=== PATIENT | female | born 2000 | race Caucasian/White ===

== ENCOUNTER 2020-06-25 07:21 | Emergency (ER) | payer OTHER ==
[~2020-06-25] VITALS: Ht 165.1 cm; Wt 54.4 kg
[2020-06-25] MEDS ORDERED: LEVO-96 PO (07:26)
[2020-06-25] MEDS ORDERED: NS 1,000 ML IV ONE (08:15)
[2020-06-25] MEDS ORDERED: METOCLOPRAMIDE INJ 10MG/2ML VIAL (J2765 PER 1) IV ONE (08:15)
[2020-06-25 08:17] LABS: BASO % 0.3 % (0.0-1.0); EOS % 0.2 % (0.0-3.0); HEMATOCRIT 40.9 % (36.0-47.0); HEMOGLOBIN 14.2 g/dl (12.0-15.5); MEAN CORPUSCULAR HEMOGLOBIN 29.9 pg (27.0-33.0); MEAN CORPUSCULAR HGB CONC 34.7 g/dl (32.0-36.5); MEAN CORPUSCULAR VOLUME 86.1 fl (80.0-96.0); MONO # 0.3 10^3/uL (0.0-0.8); MONO % 3.8 % (0.0-5.0); NEUTROPHILS # 7.2 10^3/uL (1.5-8.5); NEUTROPHILS % 83.2 % (36.0-66.0); PLATELET COUNT, AUTOMATED 250 10^3/uL (150-450); RED BLOOD COUNT 4.75 10^6/uL (4.00-5.40); WHITE BLOOD COUNT 8.7 10^3/uL (4.0-10.0)
[2020-06-25 09:07] LABS: ALBUMIN 3.8 GM/DL (3.2-5.2); ALT/SGPT 15 U/L (12-78); BILIRUBIN,DIRECT 0.2 MG/DL (0.0-0.2); BILIRUBIN,TOTAL 0.6 MG/DL (0.2-1.0); BLOOD UREA NITROGEN 8 MG/DL (7-18); CALCIUM LEVEL 8.9 MG/DL (8.5-10.1); CARBON DIOXIDE LEVEL 21 MEQ/L (21-32); CHLORIDE LEVEL 110 MEQ/L (98-107); CREATININE FOR GFR 0.73 MG/DL (0.55-1.30); GLOMERULAR FILTRATION RATE > 60.0 (>60); GLUCOSE, FASTING 103 MG/DL (70-100); HCG, SERUM QUANTITATIVE 44980 MIU/ML; LIPASE 41 U/L (73-393); POTASSIUM SERUM 3.5 MEQ/L (3.5-5.1); SODIUM LEVEL 134 MEQ/L (136-145); TOTAL PROTEIN 6.8 GM/DL (6.4-8.2)
[2020-06-25 09:38] VITALS: BP 115/65
[2020-06-26] MEDS ORDERED: PYRI25TA2 PO (17:14)
[2020-06-26] MEDS ORDERED: UNIS25TA3 PO (17:14)
== END 2020-06-25 09:39 | disposition home or self-care (01) ==
LOC: M ED 07:21
DX: O21.9 Vomiting of pregnancy, unspecified (principal); O99.281 Endocrine, nutritional and metabolic diseases complicating pregnancy, first trimester; Z3A.01 Less than 8 weeks gestation of pregnancy; Z79.899 Other long term (current) drug therapy
CPT/HCPCS: 36415; 80048; 80076; 83690; 84702; 85025; 96361; 96374; 99284; J2765

== ENCOUNTER 2020-06-26 15:49 | Emergency (ER) | payer OTHER ==
[~2020-06-26] VITALS: Ht 165.1 cm; Wt 54.2 kg
[~2020-06-26 15:49] MED LIST: LEVO-96 PO
[2020-06-26] MEDS ORDERED: ONDANSETRON 4 MG ORAL DISINTEGRATING TAB PO ONE (16:30)
[2020-06-26] MEDS ORDERED: PYRI25TA2 PO (17:14)
[2020-06-26] MEDS ORDERED: UNIS25TA3 PO (17:14)
[2020-06-26 17:26] VITALS: BP 122/56
== END 2020-06-26 17:27 | disposition home or self-care (01) ==
LOC: M ED 15:49
DX: O21.9 Vomiting of pregnancy, unspecified (principal); Z3A.01 Less than 8 weeks gestation of pregnancy
CPT/HCPCS: 99283; Q0162

== ENCOUNTER 2021-01-01 11:15 | Outpatient (CLI) | payer OTHER ==
[~2021-01-01 11:15] MED LIST changes: +PYRI25TA2 PO; +UNIS25TA3 PO
[2021-01-02 06:19] LABS: CHLAMYDIA DNA AMPLIFICATION NEGATIVE (NEGATIVE); GC DNA AMPLIFICATION NEGATIVE (NEGATIVE)
[2021-01-02 08:03] LABS: APPEARANCE, URINE CLEAR (CLEAR); BACTERIA, URINE AUTO NEGATIVE (NEGATIVE); BILIRUBIN, URINE AUTO NEGATIVE (NEGATIVE); BLOOD, URINE BLOOD NEGATIVE (NEGATIVE); COLOR, URINE YELLOW (YELLOW); GLUCOSE, URINE (UA) AUTO NEGATIVE (NEGATIVE); KETONE, URINE AUTO TRACE mg/dL (NEGATIVE); LEUKOCYTE ESTERASE, URINE AUTO NEGATIVE (NEGATIVE); NITRITE, URINE AUTO NEGATIVE (NEGATIVE); PROTEIN, URINE AUTO NEGATIVE (NEGATIVE); RBC, URINE AUTO 0 /HPF (0-3); SPECIFIC GRAVITY URINE AUTO 1.009 (1.002-1.035); SQUAMOUS EPITHELIAL CELL UR AU 2 /HPF (0-6); UROBILINOGEN, URINE AUTO 0.2 mg/dL (0.0-2.0); WBC, URINE AUTO 0 /HPF (0-3)
== END 2021-01-01 12:50 | disposition home or self-care (01) ==
LOC: M LDO 11:15 → MERGE 11:15 → M LDO 12:50
PROVIDERS: ATTEND Registered Nurse
DX: O47.9 False labor, unspecified (principal); Z3A.00 Weeks of gestation of pregnancy not specified
CPT/HCPCS: 59025; 81001; 87081; 87086; 87491; 87591; G0378; G0463

== ENCOUNTER 2021-01-28 09:01 | Outpatient (CLI) | payer OTHER ==
[2021-01-28 09:10] VITALS: BP 120/79
== END 2021-01-28 09:50 | disposition home or self-care (01) ==
LOC: M LDO 09:01
PROVIDERS: ATTEND Obstetrics & Gynecology
DX: O36.8330 Maternal care for abnormalities of the fetal heart rate or rhythm, third trimester, not applicable or unspecified (principal); Z3A.37 37 weeks gestation of pregnancy

== ENCOUNTER 2021-02-06 07:34 | Inpatient (IN) | payer OTHER ==
[~2021-02-06] VITALS: Ht 165.1 cm; Wt 76.4 kg
[2021-02-06] VITALS (16 sets, daily range): BP systolic 121–154; BP diastolic 68–85
[2021-02-06] MEDS ORDERED: PRENTAB9 PO (07:55)
--- NOTE | 2021-02-06 09:52 | HPEPDOC ---
Obstetrical History & Physical General Date of Admission Feb 06, 2021 at 07:34 History of Present Illness 20yo at 39+0wks presenting for IOL for uncontrolled hypothyroidism. She has had difficulty achieving adequate control of her TFTs since becoming . Denies VB, LOF, DFM, or ctx's. 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 Past Medical History Medical History Hypothyroidism Surgical History: [place] teeth Family History Significant Family History: Hypertension Social History Marital Status: Family situation: Spouse/partner home Psychosocial History: Timo SI and HI, Depression * Smoker: non-smoker Alcohol: Denies Drugs: denies Imunizations Tdap status: current (12/06/2020) Influenza Status: declined Allergies Coded Allergies: No Known Allergies (Unverified , 06/26/20) Medications Scheduled Levothyroxine Sodium (Levo-T) 175 Mcg Tablet, 175 MCG PO DAILY for hypothyroid No.137/Iron/Folic Acd ( Vitamin Tablet) 1 Each Tablet, 1 TAB PO DAILY Physical Examination Physical Examination GENERAL: Alert and oriented times three. ABDOMEN: Gravid and non-tender to touch. FETUS: Is vertex (VTX) by sterile vaginal examination (SVE), fetus is vertex (VTX) by Isaak. CARDS: well-perfused RESP: no exaggerated respiratory effort EXTREMITIES: No edema. : NEFG, SVE closed/thick/high Laboratory Data 24H LABS Laboratory Tests 2 02/06/21 07:41: Serology Scanned Report Hepatitis B Testing Urine Culture: No Growth Pertinent Laboratoy Data Blood Type: O- RBC Antibody Screen: Negative HIV: Negative Hepatitis B: Negative Rapid Plasma Reagin: Nonreactive Rubella: Immune Varicella: Immune Chlamydia/Gonorrhea: Negative Group B Streptococcus: Negative Quad Screen Test: Negative Cystic Fibrosis: Negative Glucose Tolerance Test: 108 Anatomy Ultrasound Placenta Location: Posterior Normal Anatomy: Yes Placenta Previa: No Vaginal Examination Dilation: None Effacement: 30% Station: -3 Cervical Consistency: Medium Cervical Position: Posterior Presentation: Cephalic presentation Assessment Heart Rate (FHR): 145 Variability: Moderate Accelerations: Present Decelerations: None Tocometer Contractions: No Multi-drug resistant Organism: No history of MDRO Assessment/Plan Assessment 20yo at 39+0wks presenting for scheduled IOL for uncontrolled hypothyroidism in . Cervix closed/thick/high. GBS neg. EFW 3200g. Plan Admit and orient. Epic Radiant Analyst and consent. Diet: regular as tolerated in latent labor then clear in active labor Group B Streptococcus (GBS) negative. Labs and intravenous (IV) per unit protocol. Counseled on Pitocin and induction of labor (IOL). Plan to start IOL with cytotec at this time. Lactated Ringers (LR): heplock Anticipate normal spontaneous delivery (). C-S as appropriate. GREYSON PARISH DO Feb 06, 2021 09:52
[2021-02-06 10:46] LABS: HEMATOCRIT 35.1 % (36.0-47.0); HEMOGLOBIN 10.8 g/dl (12.0-15.5); MEAN CORPUSCULAR HEMOGLOBIN 26.7 pg (27.0-33.0); MEAN CORPUSCULAR HGB CONC 30.8 g/dl (32.0-36.5); MEAN CORPUSCULAR VOLUME 86.7 fl (80.0-96.0); PLATELET COUNT, AUTOMATED 324 10^3/uL (150-450); RED BLOOD COUNT 4.05 10^6/uL (4.00-5.40); WHITE BLOOD COUNT 10.7 10^3/uL (4.0-10.0)
[2021-02-06] MEDS ORDERED: FENTANYL 2MCG/ML ROPIVACAINE 0.2% IN 0.9% NACL 100ML IVBAG As Ordered ONE (22:44)
[2021-02-06] MEDS ORDERED: diphenhydrAMINE 50MG/ML VIAL (J1200) IV PRN (23:00)
[2021-02-06] MEDS ORDERED: ONDANSETRON 4MG/2ML VIAL IV PRN (23:00)
[2021-02-06] MEDS ORDERED: EPIDURAL COMMENT XX SCH (23:00)
[2021-02-06] MEDS ORDERED: REFRIGERATOR IV KEYS XX PRN (23:00)
[2021-02-06] MEDS ORDERED: LACTATED RINGER'S 1000 ML IV PRN (23:00)
[2021-02-06] MEDS ORDERED: EPIDURAL/PCA KEYS XX PRN (23:00)
[2021-02-06] MEDS ORDERED: NALOXONE INJ 0.4MG/1ML VIAL (J2310 PER 1MG) IV PRN (23:00)
[2021-02-06] MEDS ORDERED: ePHEDrine SULFATE 25 MG/5 ML(5MG/ML) SYRINGE IV PRN (23:00)
[2021-02-06] MEDS ORDERED: FENTANYL/ROPIVACAINE/NACL BAG 100 ML EPIDURAL SCH (23:00)
[2021-02-07] VITALS (19 sets, daily range): BP systolic 111–174; BP diastolic 66–98
--- NOTE | 2021-02-07 00:04 | IPNPDOC ---
Obstetrical Progress Note Date of Service Feb 06, 2021 Subjective 20yo at 39+0wks admitted for IOL for uncontrolled hypothyroidism. She reports gush of clear fluid at 1840. She reports having mild cramping pelvic pain until 1999 when ctx's developed and she reports they are quite painful. She endorses good FM. Denies VB. Objective Vital Signs Date Time Temp Pulse Resp B/P (MAP) Pulse Ox O2 Delivery O2 Flow Rate FiO2 02/06/21 19:46 98.3 02/06/21 19:46 64 16 02/06/21 18:25 151/77 (101) Assessment Heart Rate (FHR): 150 Variability: Moderate Accelerations: Positive Decelerations: None Heart Rate Tracing: Category I Tocometer Contractions: Yes Frequency: every 1-3 min. Sterile Vaginal Examination Dilation: 3 cm Effacement (%): 80% Station: 0 Cervical Consistency: Soft Cervical Position: Anterior Postion/Presentation: Cephalic presentation Assessment and Plan Status: Reassuring Group B Streptococcus: Negative Anticipate: Vaginal Delivery Additional Comments 20yo at 39+0wks admitted for IOL for uncontrolled hypothyroidism. Patient has received 2 doses of cytotec. SVE revealed significant cervical change from closed to 3/80/0. Patient requested epidural for pain mgmt, anesthesia consulted. Will discontinue cytotec at this time to allow for expectant mgmt. FHRT cat I with regular ctx's. Will allow for expectant mgmt at this time for anticipated . Patient desires to proceed, safe to continue. GREYSON PARISH DO Feb 07, 2021 00:04
--- NOTE | 2021-02-07 00:07 | IPNPDOC ---
Obstetrical Progress Note Date of Service Feb 07, 2021 Objective Vital Signs Date Time Temp Pulse Resp B/P (MAP) Pulse Ox O2 Delivery O2 Flow Rate FiO2 02/06/21 19:46 98.3 02/06/21 19:46 64 16 02/06/21 18:25 151/77 (101) Assessment Heart Rate (FHR): 145 Variability: Moderate Accelerations: Present Heart Rate Tracing: Category I Tocometer Contractions: Yes Frequency: regular, every 1-5 min. Sterile Vaginal Examination Dilation: 6 cm Effacement (%): 100% Station: 0 Cervical Consistency: Soft Cervical Position: Anterior Postion/Presentation: Cephalic presentation Assessment and Plan Status: Reassuring Group B Streptococcus: Negative Anticipate: Vaginal Delivery Additional Comments SVE by RN after epidural noted to be 6-7/100/0. FHRT cat I. Will allow patient to rest with effective epidural in place at this time. Anticipate . GREYSON PARISH DO Feb 07, 2021 00:07
[2021-02-07] MEDS ORDERED: OXYTOCIN 30 UNITS IN 0.9% NaCl 500ML IV BAG (J2590) As Ordered ONE (03:24)
--- NOTE | 2021-02-07 04:40 | DNPDOC ---
[facility] Delivery Note Delivery Note DATE OF DELIVERY: [id number] PREDELIVERY DIAGNOSIS: 39+1/7 weeks' gestation and labor. POST DELIVERY DIAGNOSIS: Delivered. PROCEDURE: Spontaneous vaginal delivery ANALOG CIRCUIT DESIGNER: Dr. Greyson Parish ANESTHESIA: Epidural. ESTIMATED BLOOD LOSS: 300 mL. FINDINGS: 8 pound 5 ounce 3780g male infant, Score 9/9, no nuchal cord, no meconium on delivery field but occurred on maternal abdomen. DELIVERY SUMMARY: Emalie progressed to c/c/+3 and began pushing. With excellent maternal effort, spontaneous vaginal delivery of a viable term male . Presentation was OA with restitution to ROT with left anterior shoulder. Anterior shoulder and body delivered without difficulty. No nuchal cord. Infant with spontaneous cry on delivery field therefore placed on maternal abdomen with care transferred to Team. Meconium noted after delivery of while on maternal abdomen. IV pitocin bolus initiated. Inspection revealed a 1st degree perineal laceration that was reapproximated with 2-0 vicryl in routine fashion with good approximation of tissue and hemostasis noted. After >10 minutes of delayed cord clamping, three vessel cord clamped x2 and cut by FOB. Cord blood sample obtained. Third stage spontaneous with intact placenta. Fundal massage revealed firm uterine tone and hemostasis. EBL 300ml. Mother and infant stable and bonding upon my leaving the room. Gerard, OB Staff GREYSON PARISH DO Feb 07, 2021 04:30
[2021-02-07 19:09] LABS: HEMATOCRIT 31.4 % (36.0-47.0); HEMOGLOBIN 9.8 g/dl (12.0-15.5); MEAN CORPUSCULAR HEMOGLOBIN 26.4 pg (27.0-33.0); MEAN CORPUSCULAR HGB CONC 31.2 g/dl (32.0-36.5); MEAN CORPUSCULAR VOLUME 84.6 fl (80.0-96.0); PLATELET COUNT, AUTOMATED 312 10^3/uL (150-450); RED BLOOD COUNT 3.71 10^6/uL (4.00-5.40); WHITE BLOOD COUNT 18.1 10^3/uL (4.0-10.0)
[2021-02-07 19:35] LABS: ALBUMIN 2.5 GM/DL (3.2-5.2); ALT/SGPT 12 U/L (12-78); BILIRUBIN,TOTAL 0.3 MG/DL (0.2-1.0); BLOOD UREA NITROGEN 9 MG/DL (7-18); CALCIUM LEVEL 8.8 MG/DL (8.5-10.1); CARBON DIOXIDE LEVEL 25 MEQ/L (21-32); CHLORIDE LEVEL 107 MEQ/L (98-107); CREATININE FOR GFR 0.49 MG/DL (0.55-1.30); GLOMERULAR FILTRATION RATE > 60.0 (>60); GLUCOSE, FASTING 98 MG/DL (70-100); POTASSIUM SERUM 3.8 MEQ/L (3.5-5.1); SODIUM LEVEL 140 MEQ/L (136-145); TOTAL PROTEIN 5.9 GM/DL (6.4-8.2)
[2021-02-08 05:42] VITALS: BP 112/78
--- NOTE | 2021-02-08 06:30 | IPNPDOC ---
Progress Note Date of Service: Feb 08, 2021 Day#: 1 Progress Note SUBJECT: 20yo PPD1 s/p c/b 1MLL at 39wks presenting for IOL for uncontrolled hypothyroidism. Her was also complicated by excessive weight gain and Rh negative. She over her stay has met criteria for GHTN, her tox labs were normal and she has no si/sx of pre-e. She delivered a 8 pound 5 ounce 3780g male , Score 9/9. She has been ambulating, voiding spontaneously without issue and tolerating regular diet. Breast feeding without issue. Reports lochia is like a normal period. Patient is ambulating well. Reports some cramping with . Denies any pain. Voiding and stooling without difficulty. OBJECTIVE: VITAL SIGNS: Within normal limits, afebrile. Alert and oriented times three. No increased WOB Heart rate: non-tachycardic Abdomen: Fundus firm at U-2. Soft, NTTP. Minimal lochia per patient ASSESSMENT: 20yo PPD1 s/p c/b 1MLL at 39wks presenting for IOL for uncontrolled hypothyroidism. Her was also complicated by excessive weight gain and Rh negative. She over her stay has met criteria for GHTN, her tox labs were normal and she has no si/sx of pre-e. She delivered a 8 pound 5 ounce 3780g male infant, Score 9/9. Vitals within normal limits, afebrile, hemodynamically stable with no evidence of infection. PLAN: 1. Discharge to home likely tomorrow, her baby will need light therapy for bilirubin 2. Tylenol and Motrin for pain. 3. Encourage breast feeding and ambulation. 4. Desires interval nexplanon for contraception 5. Routine PP visit in 6 weeks in clinic. 6. Discussed return precautions at length. VS, I&O, 24H, Fishbone Vital Signs/I&O Vital Signs Date Time Temp Pulse Resp B/P (MAP) Pulse Ox O2 Delivery O2 Flow Rate FiO2 02/08/21 05:42 97.2 72 16 112/78 (89) 100 Room Air I&O- Last 24 Hours up to 6 AM 02/08/21 05:59 Intake Total 300 ml Output Total 1150 ml Balance -850 ml Laboratory Data 24H LABS Laboratory Tests 2 02/07/21 18:06: Nucleated Red Blood Cells % (auto) 0.0, Anion Gap 8, Glomerular Filtration Rate > 60.0, Calcium Level 8.8, Total Bilirubin 0.3, Aspartate Amino Transf (AST/SGOT) 29, Alanine Aminotransferase (ALT/SGPT) 12, Alkaline Phosphatase 251H, Total Protein 5.9L, Albumin 2.5L, Albumin/Globulin Ratio 0.7L CBC/BMP Laboratory Tests 02/07/21 18:06 RANJITH HAIR DO Feb 08, 2021 06:30
[2021-02-08 08:00] VITALS: BP 112/78
[2021-02-08 18:00] VITALS: BP 113/79
[2021-02-08] MEDS ORDERED: IBUPROFEN 800 MG TAB As Ordered ONE (23:53)
[2021-02-09 06:00] VITALS: BP 113/76
--- NOTE | 2021-02-09 06:41 | IPNPDOC ---
Progress Note Date of Service: Feb 09, 2021 Day#: 2 Progress Note SUBJECT: 20yo PPD2 s/p c/b 1MLL at 39wks presenting for IOL for uncont rolled hypothyroidism. Her was also complicated by excessive weight gain and Rh negative. She over her stay has met criteria for GHTN, her tox labs were normal and she has no si/sx of pre-e. She delivered a 8 pound 5 ounce 3780g male , Score 9/9. She has been ambulating, voiding spontaneously without issue and tolerating regular diet. Breast feeding without issue. Reports lochia is like a normal period. Patient is ambulating well. Reports some cramping with . Denies any pain. Voiding and stooling without difficulty. OBJECTIVE: VITAL SIGNS: Within normal limits, afebrile. Alert and oriented times three. No increased WOB Heart rate: non-tachycardic Abdomen: Fundus firm at U-2. Soft, NTTP. Minimal lochia per patient ASSESSMENT: 20yo PPD2 s/p c/b 1MLL at 39wks presenting for IOL for uncontrolled hypothyroidism. Her was also complicated by excessive weight gain and Rh negative. She over her stay has met criteria for GHTN, her tox labs were normal and she has no si/sx of pre-e. She delivered a 8 pound 5 ounce 3780g male , Score 9/9. Vitals within normal limits, afebrile, hemodynamically stable with no evidence of infection. PLAN: 1. Discharge to home today 2. Tylenol and Motrin for pain. 3. Encourage breast feeding and ambulation. 4. Desires interval nexplanon for contraception 5. Routine PP visit in 6 weeks in clinic. 6. Discussed return precautions at length. 7. rhogam is not indicated as the baby is Rh negative VS, I&O, 24H, Fishbone Vital Signs/I&O Vital Signs Date Time Temp Pulse Resp B/P (MAP) Pulse Ox O2 Delivery O2 Flow Rate FiO2 02/09/21 06:00 97.5 94 18 113/76 (88) 99 Room Air RANJITH HAIR DO Feb 09, 2021 06:41
--- NOTE | 2021-02-09 06:43 | OBDS ---
[facility] Obstetrical Discharge Sum. A/P, Post Course List any complications Ms. Call 20yo dya 2 after vaginal delivery complicated by first degree midline laceration at 39wks presenting for induction for uncontrolled hypothyroidism. Her was also complicated by excessive weight gain and Rh negative. She over her stay has met criteria for gestational hypertension, her pre-eclampsia labs were normal and she has has no symptoms of pre-eclampsia. She delivered a 8 pound 5 ounce 3780g male , Score 9/9. She has been ambulating, voiding spontaneously without issue and tolerating regular diet. Breast feeding without issue. Reports lochia is like a normal period. Patient is ambulating well. Reports some cramping with . Denies any pain. Voiding and stooling without difficulty. PLAN: 1. Discharge to home today 2. Tylenol and Motrin for pain. 3. Encourage breast feeding and ambulation. 4. Desires interval nexplanon for contraception 5. Routine visit in 6 weeks in clinic. 6. Discussed return precautions at length. 7. rhogam is not indicated as the baby is Rh negative RANJITH HAIR DO Feb 09, 2021 06:43
[2021-02-09 17:55] VITALS: BP 116/66
[2021-02-09] MEDS ORDERED: SIMETHICONE 80MG CHEW TAB PO PRN (19:55)
[2021-02-10 06:03] VITALS: BP 102/62
--- NOTE | 2021-02-10 07:22 | IPNPDOC ---
Progress Note Date of Service: Feb 10, 2021 Day#: 3 Progress Note SUBJECT: 20yo PPD3 s/p c/b 1MLL at 39wks presenting for IOL for uncont rolled hypothyroidism. Her was also complicated by excessive weight gain and Rh negative. She over her stay has met criteria for GHTN, her tox labs were normal and she has no si/sx of pre-e. She delivered a 8 pound 5 ounce 3780g male , Score 9/9. She has been ambulating, voiding spontaneously without issue and tolerating regular diet. Breast feeding without issue. Reports lochia is like a normal period. Patient is ambulating well. Reports some cramping with . Denies any pain. Voiding and stooling without difficulty. OBJECTIVE: VITAL SIGNS: Within normal limits, afebrile. Alert and oriented times three. No increased WOB Heart rate: non-tachycardic Abdomen: Fundus firm at U-2. Soft, NTTP. Minimal lochia per patient ASSESSMENT: 20yo PPD3 s/p c/b 1MLL at 39wks presenting for IOL for uncontrolled hypothyroidism. Her was also complicated by excessive weight gain and Rh negative. She over her stay has met criteria for GHTN, her tox labs were normal and she has no si/sx of pre-e. She delivered a 8 pound 5 ounce 3780g male , Score 9/9. Vitals within normal limits, afebrile, hemodynamically stable with no evidence of infection. PLAN: 1. Discharge to home today 2. Tylenol and Motrin for pain. 3. Encourage breast feeding and ambulation. 4. Desires interval nexplanon for contraception 5. Routine PP visit in 6 weeks in clinic. 6. Discussed return precautions at length. 7. rhogam is not indicated as the baby is Rh negative VS, I&O, 24H, Fishbone Vital Signs/I&O Vital Signs Date Time Temp Pulse Resp B/P (MAP) Pulse Ox O2 Delivery O2 Flow Rate FiO2 02/10/21 06:03 97.3 80 16 102/62 (75) 02/09/21 06:00 99 Room Air RANJITH HAIR DO Feb 10, 2021 07:22
== END 2021-02-10 16:15 | disposition home or self-care (01) | DRG 807 ==
LOC: M LDI 07:34 → M OBS 02-07 05:46
PROC: 3E0DXGC Introduction of Other Therapeutic Substance into Mouth and Pharynx, External Approach (ICD-10-PCS; 2021-02-06)
PROC: 10E0XZZ Delivery of Products of Conception, External Approach (ICD-10-PCS; principal; 2021-02-07)
PROC: 0HQ9XZZ Repair Perineum Skin, External Approach (ICD-10-PCS; 2021-02-07)
DX: O99.284 Endocrine, nutritional and metabolic diseases complicating childbirth (principal); Z37.0 Single live birth; Z3A.39 39 weeks gestation of pregnancy; E03.9 Hypothyroidism, unspecified; Z79.899 Other long term (current) drug therapy; O70.0 First degree perineal laceration during delivery; O26.00 Excessive weight gain in pregnancy, unspecified trimester; O13.4 Gestational [pregnancy-induced] hypertension without significant proteinuria, complicating childbirth